=== PATIENT | male | born 1980 | race Caucasian/White ===

== ENCOUNTER 2021-05-09 19:06 | Emergency (ER) | payer OTHER ==
[~2021-05-09] VITALS: Ht 170.2 cm; Wt 72.7 kg
[2021-05-09] MEDS ORDERED: LORazepam 1 MG tablet PO STA (19:19)
[2021-05-09 20:01] LABS: BASOPHILS # (AUTO) 0.1 X10'3 (0-0.2); EOSINOPHILS # (AUTO) 0.1 X10'3 (0-0.9); HEMATOCRIT 50.2 % (42.0-52.0); LYMPHOCYTES # (AUTO) 2.1 X10'3 (1.1-4.8); LYMPHOCYTES % (AUTO) 11.9 % (21-51); MONOCYTES # (AUTO) 1.3 X10'3 (0-0.9)
[2021-05-09 20:03] LABS: BASOPHILS % (AUTO) 0.4 % (0-1); EOSINOPHILS % (AUTO) 0.4 % (0-6); HEMOGLOBIN 16.9 g/dl (14.0-17.9); MEAN CORPUSCULAR HEMOGLOBIN 28.6 PG (27.0-31.0); MEAN CORPUSCULAR HGB CONC 33.7 g/dL (33.0-36.5); MEAN CORPUSCULAR VOLUME 84.8 FL (78-98); MEAN PLATELET VOLUME 8.8 FL (7.4-10.4); MONOCYTES % (AUTO) 7.3 % (2-12); NEUTROPHILS # (AUTO) 14.2 X10'3 (1.8-7.7); PLATELET COUNT 230 X10'3 (140-440); RED BLOOD COUNT 5.92 X10'6 (4.70-6.10); RED CELL DISTRIBUTION WIDTH 13.1 % (11.5-14.5); WHITE BLOOD COUNT 17.7 X10'3 (4.5-11.0)
[2021-05-09 20:04] LABS: ALANINE AMINOTRANSFERASE 81 U/L (12-78); ALBUMIN 4.7 G/DL (3.4-5.0); ALBUMIN/GLOBULIN RATIO 1.1 (1.1-1.5); ALKALINE PHOSPHATASE 81 IU/L (46-116); ANION GAP 11 (8-16); ASPARTATE AMINO TRANSFERASE 113 U/L (10-37); BILIRUBIN,TOTAL 1.8 MG/DL (0.1-1.0); BLOOD UREA NITROGEN 34 MG/DL (7-18); BUN/CREATININE RATIO 25.8 (5.4-32.0); CALCIUM 9.8 MG/DL (8.5-10.1); CHLORIDE 100 MMOL/L (99-107); CREATININE 1.32 MG/DL (0.60-1.10); ETHANOL < 0.010 GM/DL (0.0-0.010); GLUCOSE 102 MG/DL (70-104); POTASSIUM 4.4 MMOL/L (3.5-5.1); SODIUM 140 MMOL/L (135-145); TOTAL CARBON DIOXIDE 28.6 MMOL/L (24-32); TOTAL PROTEIN 8.9 G/DL (6.4-8.2); eGFR 60 ML/MIN
--- NOTE | 2021-05-09 20:15 | NUR ---
The patient is a 40 year old who was brought in by SO after he had been using methamphetamine throughout the night at a [facility]. He had been agitated and when SO made contact he was making suicidal and homicidal statements. He stated he was suicidal to use a knife. He did have a cut to the right side of his neck which he stated was several days old. He stated that he lives in the [facility] and came to [place] via bus. He reports AH and is distracted. He is very paranoid. Reports high anxiety. He stated, "I was running from [place]" Reports chronic SI but denied HI. The patient denies probation and parole.
[2021-05-09] MEDS ORDERED: LORazepam 2 mg/ml vial IM ONE ×2 (20:35→21:50)
[2021-05-09] MEDS ORDERED: haloperidol lactate 5mg/ml inj IM ONE (20:35)
[2021-05-09] MEDS ORDERED: diphenhydrAMINE 50 mg/ml inj IM ONE (20:35)
[2021-05-09] MEDS ORDERED: LORazepam 2 mg/ml vial ONE (20:37)
[2021-05-09] MEDS ORDERED: NO HOME MEDS (20:44)
--- NOTE | 2021-05-09 20:49 | NUR ---
The patient jumped out of bed and stood at the end of a peers bed and was making verbal threats and made an aggressive stance. He would not accept redirection. The peer that he was threatening is a mute patient who was resting quietly on his bed. Security was called and Dr. Bellamy made aware and orders received.
--- NOTE | 2021-05-09 21:07 | NUR ---
The patient appears to be sleeping
--- NOTE | 2021-05-09 21:26 | NUR ---
PACKET FAXED TO [facility]
--- NOTE | 2021-05-09 21:55 | NUR ---
The patient is yelling out and thrashing around on his bed. Jumping up by his bedside. Discussed with Dr. Bellamy and an additional 2mg of ativan given.
--- NOTE | 2021-05-09 22:25 | NUR ---
The patient was continuing to be agitated. He was standing on the bed, going into peers areas, thrashing around on his bed and hitting his head on the base board. The patient was placed in restraints for his safety
--- NOTE | 2021-05-09 23:44 | NUR ---
THe patient continues to be restless and is in restraints which her periodically pulls at restraints.
[2021-05-10] MEDS ORDERED: haloperidol lactate 5mg/ml inj IM ONE ×2 (00:15→02:45)
[2021-05-10] MEDS ORDERED: LORazepam 2 mg/ml vial IM ONE ×2 (00:15→02:45)
[2021-05-10] MEDS ORDERED: diphenhydrAMINE 50 mg/ml inj IM ONE ×2 (00:15→02:45)
--- NOTE | 2021-05-10 00:29 | NUR ---
The patient has been fighting against the restaints and periodically yelling.
--- NOTE | 2021-05-10 01:29 | NUR ---
MD made aware of patient agitation and orders received.
[2021-05-10] MEDS ORDERED: ziprasidone IM 20mg inj **IM only IM ONE (01:30)
--- NOTE | 2021-05-10 01:42 | NUR ---
Spoke with the charge coordinator and Dr. Bhatia regarding patient continuing to yell and pull at restraints.
[2021-05-10] MEDS ORDERED: ketamine 50 mg/ml 10ml vial IM ONE (02:25)
--- NOTE | 2021-05-10 03:05 | NUR ---
Discussed patient agitation with nursing furrier shop supervisor, Rafael MACKEY and Dr. Bhatia as well as pharmacy. Medications ordered. The patient continues to fight the restraints and scream. Medications ordered.
--- NOTE | 2021-05-10 05:00 | NUR ---
The patient remains in restraints as he is periodically yelling and pulling at the restraints.
--- NOTE | 2021-05-10 06:44 | NUR ---
RESTRAINTS REMOVED WITH SECURITY AT BS. PT REMAINS RESTING WITH EYES CLOSED RR EQUAL AND UNLABORED. PT IN EYE SITE OF NSG STAFF.
--- NOTE | 2021-05-10 08:50 | NUR ---
PT RESTING ON RIGHT SIDE RR EQUAL AND UNALBORED. PT ABLE TO SELF POSITION NEEDED WARM BLANKED PROVIDED
--- NOTE | 2021-05-10 09:43 | NUR ---
PT ROUSED AND ATTEMPTING TO SIT UP IN BED, HE FALLS OVER TO SIDE D/T FATIGUE. ENCOURAGED PT TO LAY BACK IN BED AND SLEEP. HOB ELEVATED AND PILLOW PROVIDED. PT RESTING ON BACK RR EQUAL AND UNLABORED. VS MONITOR ON. VSS
--- NOTE | 2021-05-10 10:42 | NUR ---
WITH THE ASSIST OF WILL PCT PT UP TO SIDE OF BED TO VOID PER URINAL. [address]. UA SENT
[2021-05-10 10:46] LABS: CLARITY,URINE CLOUDY (Clear); COLOR,URINE YELLOW (Yellow); GLUCOSE, URINE NEGATIVE (Neg); KETONES,URINE TRACE mg/dl (Neg); LEUKOCYTE ESTERASE ,URINE NEGATIVE (Neg); OCCULT BLOOD,URINE NEGATIVE (Neg); PROTEIN,URINE TRACE mg/dl (Neg)
[2021-05-10 10:48] LABS: NITRITES, URINE NEGATIVE (Neg); UA COLLECTION TYPE VOIDED
[2021-05-10 10:52] LABS: MUCUS STRANDS MANY /LPF (Neg); SQUAMOUS EPITHELIAL CELL,UR FEW /LPF (FEW)
[2021-05-10 10:53] LABS: BACTERIA,URINE 1+ /HPF (Neg); COARSE GRANULAR CAST 0-3 /LPF (NEGATIVE); RBC,URINE 0-2 /HPF (0-2)
[2021-05-10 10:54] LABS: URINE AMPHETAMINE SCREEN POSITIVE (Neg); URINE BARBITUATE SCREEN NEGATIVE (Neg); URINE BENZODIAZEPINES SCREEN NEGATIVE (Neg); URINE CANNABINOID SCREEN POSITIVE (Neg); URINE COCAINE SCREEN NEGATIVE (Neg); URINE METHADONE SCREEN NEGATIVE (Neg); URINE OPIATE SCREEN NEGATIVE (Neg); URINE PHENCYCLIDINE SCREEN NEGATIVE (Neg)
--- NOTE | 2021-05-10 11:06 | NUR ---
FAXED UA AND UTOX TO [facility]
--- NOTE | 2021-05-10 13:35 | NUR ---
AWAKE AND STANDING UP NEXT TO BED. STATES HE IS FEELING HUNGRY. LUNCH TRAY GIVEN TO PATIENT.
--- NOTE | 2021-05-10 14:31 | NUR ---
PT ATE LUNCH, COVID SWAB FOR PLACEMENT DONE, PT RESTING ON RIGHT SIDE RR EQUAL AND UNLABORED
--- NOTE | 2021-05-10 15:40 | NUR ---
ISIDRO FROM [facility] AT ATTEMPTING TO INTERVIEW PT. PT CONTINUES TO FALL ASLEEP DURING INTERVIEW. [facility] WILL ATTEMPT INTERVIEW IN THE AM
--- NOTE | 2021-05-10 17:06 | NUR ---
PT RESTING ON LEFT SIDE RR EQUAL AND UNLABORED.
--- NOTE | 2021-05-10 20:00 | NUR ---
Pt sleeping with + rise and fall of chest noted. Pt arousable to voice. No complaints voiced or reported.
--- NOTE | 2021-05-10 22:30 | NUR ---
Pt remains asleep. + rise and fall of chest noted. No complaints voiced or reported.
--- NOTE | 2021-05-11 01:00 | NUR ---
Pt up and awake. Mumbling to self. Pt denies any problems or issues at this time.
--- NOTE | 2021-05-11 02:22 | NUR ---
Pt sleeping. Arousable to voice. No self-injurious behaviors so far during shift. Will continue to monitor.
[2021-05-11 05:19] VITALS: BP 103/62
--- NOTE | 2021-05-11 06:30 | NUR ---
pt laying on back in bed, no distress noted equal respirations. will continue to monitor.
--- NOTE | 2021-05-11 07:44 | NUR ---
called by [facility] office requesting face sheet update. registration at bedside getting information. Will send once available.
--- NOTE | 2021-05-11 09:27 | NUR ---
pt being evaled by [facility]
--- NOTE | 2021-05-11 09:58 | NUR ---
Patient and staff are unable to reach family so patient can go home. [facility] has advised patient about the [facility] here in [place]. Partient states he will " think about it" [facility] is back at the patients bedside.
== END 2021-05-11 10:16 | disposition home or self-care (01) ==
LOC: ER 19:06
DX: R45.851 Suicidal ideations (principal); Z20.822 Contact with and (suspected) exposure to COVID-19; R45.1 Restlessness and agitation
CPT/HCPCS: 36415; 80053; 80305; 80320; 81001; 85025; 87635; 96372; 99285; C9803; J1200; J1630; J2060; J3486